=== PATIENT | male | born 1975 | race Caucasian/White ===

== ENCOUNTER 2023-07-12 13:24 | Emergency (ER) | payer BC ==
[~2023-07-12] VITALS: Ht 185.4 cm; Wt 95.3 kg
== END 2023-07-12 17:47 | disposition home or self-care (01) ==
LOC: ER 13:24
PROVIDERS: General Practice
DX: L03.113 Cellulitis of right upper limb (principal); M79.642 Pain in left hand; I10 Essential (primary) hypertension